=== PATIENT | male | born 1985 | race Caucasian/White ===

== ENCOUNTER 2022-06-16 12:03 | Inpatient (IN) ==
[2022-06-16] MEDS ORDERED: ONDANSETRON INJ 2 MG/ML 2 ML VIAL IV STA (12:17)
[2022-06-16] MEDS ORDERED: LORazepam 2 MG/1 ML VIAL IV STA ×2 (12:17→14:55)
[2022-06-16] MEDS ORDERED: MULTI-VITAMIN INFUSION 10 ML, THIAMINE HCL 100 MG, FOLIC ACID 1 MG in SODIUM CHLORIDE 0... IV ONE (12:17)
--- NOTE | 2022-06-16 12:23 | Emergency Department Note ---
Impression & Plan Seizure, Alcohol withdrawal, Alcohol abuse, Elevated liver enzymes, Thrombocytopenia, Acute head trauma, Fracture of nasal bone ED Provider Note NAME: SHERRY HYATT AGE: 37 SEX: M : 1985 ARRIVES VIA: Ambulance INFORMANT: [Patient][nursing] ED PROVIDER(S): [Jhon Medeiros MD] CHIEF COMPLAINT: Seizure HISTORY OF PRESENT ILLNESS: The patient is a 37-year-old male with a history of alcohol abuse. He has had seizures from alcohol withdrawal. The patient is visiting this area and was found rigid with seizure activity in the basement of his friend's home. Patient was postictal as per EMS. Patient complains of soreness to his tongue, he thinks he bit his tongue. He has a contusion and an abrasion to the mid forehead as well as an abrasion to the left side of his nose. His tetanus is current. The patient has some mild discomfort across the head and face. He denies any cough or congestion or recent illness. No recent fever. He cannot recall v omiting. The patient typically drinks vodka, anywhere from 6-10 drinks a day. His last alcohol consumption was about 24 hours ago. REVIEW OF SYSTEMS: See HPI for pertinent positives and negatives. A total of ten systems were reviewed and were otherwise negative. PMHx/PSHx: See Below SOCIAL HISTORY: See Below. PHYSICAL EXAM: GENERAL: Patient is in mild distress. HEENT: There is a hematoma to the mid forehead with an abrasion to the center of the hematoma, no laceration requiring repair. No bony step-off. Patient has a contusion at the base of his nasal bridge but there is no real discomfort to palpate the nose. No bony facial step-off noted. He has a normal bite. There is an abrasion to the left side of the nose, no laceration requiring repair. There are some subtle lacerations to his tongue consistent with a tongue bite. NECK: No stridor, no adenopathy, stiff collar in place. LUNGS: Clear to auscultation bilaterally, no wheeze, no rhonchi, breath sounds equal. HEART: Mildly tachycardic, regular rhythm, no murmurs. ABDOMEN: Soft, nontender, bowel sounds positive, no peritonitis. EXTREMITIES: No cyanosis or edema, full range of motion of all the joints with out pain or difficulty, no signs for acute trauma. NEUROLOGIC: Oriented x 3, no acute motor or sensory deficits, no focal weakness. He does have some generalized fine shaking of his extremities. SKIN: No rash, no jaundice, no diaphoresis. DIFFERENTIAL DIAGNOSIS: Infection, dehydration, seizure, alcohol withdrawal, alcohol abuse, intracranial bleeding, facial fracture, C-spine fracture, metabolic abnormality, hypo/hyperglycemia, electrolyte disturbance, anemia, hypoxia, cardiac sources, intracerebral event, toxicologic issues, as well as other pathologies. EMERGENCY DEPARTMENT COURSE/PROCEDURES: ECG: Indication was seizure. The ECG shows a sinus tachycardia with a rate of 102. There is no ST elevation, no PVCs. The QTc is 450. Continuous Cardiac Monitoring: An order was placed for continuous cardiac mo nitoring. The monitor shows a rate of 108 with sinus tachycardia. Critical Care Note: I have personally spent 51 minutes of critical care time in the direct management of this patient. This includes bedside care, interpretation of diagnostic studies, and testing, discussion with consultants, patient, and family members, and other required patient management activities. This 51 minutes is in excess of all separately billable procedures. MEDICAL DECISION MAKING: There is a lower white count, hemoglobin and platelet count, all likely c onsistent with his alcohol abuse. Potassium was low at 3.1. CO2 was low consistent with his alcoholism. No renal failure. Liver enzymes were elevated consistent with alcohol abuse. Total CK was not elevated making rhabdomyolysis less likely. Patient appeared to be in a euthyroid state. Prolactin level was elevated consistent with seizure-like activity. ECG showed a sinus tachycardia, no acute ischemia. Cardiac enzyme testing x1 was not consistent with acute cardiac injury. Urinalysis was discolored consistent with his elevated bilirubin level, no obvious infection by UA. Aspirin and Tylenol levels were undetectable. Urine tox is currently pending. Alcohol level was 27, mildly el evated. COVID test was negative. Chest film did not show pneumonia or CHF. Brain CT showed no acute bleed or mass-effect. A chronic finding was noted in the brain, the patient is aware of this abnormality. There was no C-spine fracture by CT imaging. Facial CT did show a nasal bone fracture. The patient received IV saline, 500 cc. He was given IV saline with multivitamins, thiamine and folate. He received IV Zofran, IV Ativan and oral Librium. Patient presents with what sounds like an alcohol withdrawal seizure. He has suffered a nasal fracture and some facial abrasions/contusions. He is in need of a hospital stay. He currently is resting comfortably without complaints and is asking for something to eat/drink. I did speak with the patient at length, I talked to the casework manager. The on- call hospitalist was consulted. Past Med/Surg History Medical History Abnormal brain CT Alcohol abuse Elevated liver enzymes Seizure Social History Smoking Status: Never smoker Preferred Language: Iraqi Feels Safe at Home: Yes Allergies Allergies Allergy/AdvReac Type Severity Reaction Status Date / Time [id number] Allergy Unknown Uncoded 11/21/02 14:26 N Allergy Unknown Uncoded 11/21/02 14:26 Results & Data (ED) Vital Signs Vital Signs - 24 hr 06/16/22 12:12 06/16/22 12:48 06/16/22 13:28 Temperature 36.8 C Temperature Source Oral Pulse Rate 108 H Pulse Rate [Apical] 96 H 93 H Respiratory Rate 22 20 18 Respiratory Effort / Characteristics Non-Labored Spontaneous Respiratory Depth Normal Normal Blood Pressure 128/68 Blood Pressure [Right Arm] 135/93 124/74 Blood Pressure Mean 88 Blood Pressure Mean [Right Arm] 107 90 Blood Pressure Position [Right Arm] Lying Pulse Oximetry 98 98 97 Oxygen Delivery Method Room Air Room Air Room Air Sepsis Recent Fever Within 48 Hours No Sepsis New/Unexplained Change in Mental Status No Sepsis Action Taken by Nursing No Action Required Home Medications Current Medication List: was personally reviewed by me Laboratory Data Attestation: I reviewed the patient's lab results. Result diagrams: 06/16/22 12:25 06/16/22 12:25 Lab Results 06/16/22 06/16/22 06/16/22 Range/Units 12:25 12:25 12:25 WBC 2.57 L (4.8-10.8) K/ul RBC 3.90 L (4.63-6.08) M/uL Hgb 11.7 L (14.0-18.0) g/dl Hct 35.6 L (40.1-51.0) % MCV 91.3 (80.0-100.0) fL MCH 30.0 (25.0-34.0) pg MCHC 32.9 (32.0-36.0) g/dL RDW Std Deviation 65.7 H (36.4-46.3) fL RDW Coeff of Sagrario 19.9 H (11.5-14.5) % Plt Count 37 L (130-400) K/uL Immature Gran % (Auto) 0.8 % Neut % (Auto) 68.1 % Lymph % (Auto) 18.3 % Josephine % (Auto) 10.1 % Eos % (Auto) 0.4 % Baso % (Auto) 2.3 % Neut # (Auto) 1.75 (1.4-6.5) K/uL Lymph # (Auto) 0.47 L (1.2-3.4) K/uL Josephine # (Auto) 0.26 (0.24-0.82) K/uL Eos # (Auto) 0.01 (0-0.50) K/uL Baso # (Auto) 0.06 (0-0.2) K/uL Immature Gran # (Auto) 0.02 (0.00-0.02) K/uL Platelet Estimate Signific. Decreased L (Normal) Sodium 137 (136-145) mmol/L Potassium 3.1 L (3.5-5.1) mmol/L Chloride 94 L (98-107) mmol/L Carbon Dioxide 17 L (21-32) mmol/L Anion Gap 26 H (3-11) BUN 9 (6-23) mg/dl Creatinine 0.71 (0.6-1.4) mg/dl Est Cr Clr Drug Dosing 185.7 ml/min Est GFR ( Amer) 137.0 ml/min Est GFR (Non-Af Amer) 118.2 ml/min BUN/Creatinine Ratio 12.7 (10-20) Glucose 116 H (70-99(Fasting)) mg/dl Calcium 9.7 (8.5-10.1) mg/dl Magnesium 1.9 (1.7-2.4) mg/dl Total Bilirubin 2.1 H (0.2-1.0) mg/dl AST 258 H (13-39) U/L ALT 108 H (7-52) U/L Alkaline Phosphatase 126 H (34-104) U/L Total Creatine Kinase 121 (30-223) U/L Troponin I High Sens 7.2 (0-20) pg/ml Total Protein 7.9 (6.0-8.3) gm/dl Albumin 4.7 (3.4-5.0) gm/dl Globulin 3.2 (2.5-4.0) gm/dl Albumin/Globulin Ratio 1.5 (0.9-2) TSH 2.687 (0.300-4.500) uIu/ml Prolactin ng/ml Urine Color Urine Appearance (Clear) Urine pH (4.5-7.5) Ur Specific Campbell (1.000-1.030) Urine Protein (Negative) Urine Glucose (UA) (Negative) Urine Ketones (Negative) Urine Blood (Negative) Urine Nitrite (Negative) Urine Bilirubin (Negative) Urine Urobilinogen (Negative) Ur Leukocyte Esterase (Negative) Urine WBC (Auto) (0-5) /hpf Urine RBC (Auto) (0-4) /hpf U Hyaline Cast (Auto) (0-5) /lpf U Epithel Cells (Auto) (0-5) /lpf Urine Bacteria (Auto) (Negative) Salicylates (3.0-30) mg/dl Acetaminophen (10-30) ug/ml Ethyl Alcohol mg/dL (<10.0) mg/dl SARS-CoV-2, RNA, NAAT (NEGATIVE) 06/16/22 06/16/22 06/16/22 Range/Units 12:25 12:25 12:25 WBC (4.8-10.8) K/ul RBC (4.63-6.08) M/uL Hgb (14.0-18.0) g/dl Hct (40.1-51.0) % MCV (80.0-100.0) fL MCH (25.0-34.0) pg MCHC (32.0-36.0) g/dL RDW Std Deviation (36.4-46.3) fL RDW Coeff of Sagrario (11.5-14.5) % Plt Count (130-400) K/uL Immature Gran % (Auto) % Neut % (Auto) % Lymph % (Auto) % Josephine % (Auto) % Eos % (Auto) % Baso % (Auto) % Neut # (Auto) (1.4-6.5) K/uL Lymph # (Auto) (1.2-3.4) K/uL Josephine # (Auto) (0.24-0.82) K/uL Eos # (Auto) (0-0.50) K/uL Baso # (Auto) (0-0.2) K/uL Immature Gran # (Auto) (0.00-0.02) K/uL Platelet Estimate (Normal) Sodium (136-145) mmol/L Potassium (3.5-5.1) mmol/L Chloride (98-107) mmol/L Carbon Dioxide (21-32) mmol/L Anion Gap (3-11) BUN (6-23) mg/dl Creatinine (0.6-1.4) mg/dl Est Cr Clr Drug Dosing ml/min Est GFR ( Amer) ml/min Est GFR (Non-Af Amer) ml/min BUN/Creatinine Ratio (10-20) Glucose (70-99(Fasting)) mg/dl Calcium (8.5-10.1) mg/dl Magnesium (1.7-2.4) mg/dl Total Bilirubin (0.2-1.0) mg/dl AST (13-39) U/L ALT (7-52) U/L Alkaline Phosphatase (34-104) U/L Total Creatine Kinase (30-223) U/L Troponin I High Sens (0-20) pg/ml Total Protein (6.0-8.3) gm/dl Albumin (3.4-5.0) gm/dl Globulin (2.5-4.0) gm/dl Albumin/Globulin Ratio (0.9-2) TSH (0.300-4.500) uIu/ml Prolactin 15.96 ng/ml Urine Color Urine Appearance (Clear) Urine pH (4.5-7.5) Ur Specific Campbell (1.000-1.030) Urine Protein (Negative) Urine Glucose (UA) (Negative) Urine Ketones (Negative) Urine Blood (Negative) Urine Nitrite (Negative) Urine Bilirubin (Negative) Urine Urobilinogen (Negative) Ur Leukocyte Esterase (Negative) Urine WBC (Auto) (0-5) /hpf Urine RBC (Auto) (0-4) /hpf U Hyaline Cast (Auto) (0-5) /lpf U Epithel Cells (Auto) (0-5) /lpf Urine Bacteria (Auto) (Negative) Salicylates < 3.0 L (3.0-30) mg/dl Acetaminophen 3 L (10-30) ug/ml Ethyl Alcohol mg/dL 27.5 H (<10.0) mg/dl SARS-CoV-2, RNA, NAAT (NEGATIVE) 06/16/22 06/16/22 Range/Units 12:39 13:00 WBC (4.8-10.8) K/ul RBC (4.63-6.08) M/uL Hgb (14.0-18.0) g/dl Hct (40.1-51.0) % MCV (80.0-100.0) fL MCH (25.0-34.0) pg MCHC (32.0-36.0) g/dL RDW Std Deviation (36.4-46.3) fL RDW Coeff of Sagrario (11.5-14.5) % Plt Count (130-400) K/uL Immature Gran % (Auto) % Neut % (Auto) % Lymph % (Auto) % Josephine % (Auto) % Eos % (Auto) % Baso % (Auto) % Neut # (Auto) (1.4-6.5) K/uL Lymph # (Auto) (1.2-3.4) K/uL Josephine # (Auto) (0.24-0.82) K/uL Eos # (Auto) (0-0.50) K/uL Baso # (Auto) (0-0.2) K/uL Immature Gran # (Auto) (0.00-0.02) K/uL Platelet Estimate (Normal) Sodium (136-145) mmol/L Potassium (3.5-5.1) mmol/L Chloride (98-107) mmol/L Carbon Dioxide (21-32) mmol/L Anion Gap (3-11) BUN (6-23) mg/dl Creatinine (0.6-1.4) mg/dl Est Cr Clr Drug Dosing ml/min Est GFR ( Amer) ml/min Est GFR (Non-Af Amer) ml/min BUN/Creatinine Ratio (10-20) Glucose (70-99(Fasting)) mg/dl Calcium (8.5-10.1) mg/dl Magnesium (1.7-2.4) mg/dl Total Bilirubin (0.2-1.0) mg/dl AST (13-39) U/L ALT (7-52) U/L Alkaline Phosphatase (34-104) U/L Total Creatine Kinase (30-223) U/L Troponin I High Sens (0-20) pg/ml Total Protein (6.0-8.3) gm/dl Albumin (3.4-5.0) gm/dl Globulin (2.5-4.0) gm/dl Albumin/Globulin Ratio (0.9-2) TSH (0.300-4.500) uIu/ml Prolactin ng/ml Urine Color [place] Urine Appearance Cloudy A (Clear) Urine pH 5.5 (4.5-7.5) Ur Specific Campbell 1.025 (1.000-1.030) Urine Protein 2+ H (Negative) Urine Glucose (UA) Negative (Negative) Urine Ketones 3+ H (Negative) Urine Blood Negative (Negative) Urine Nitrite Positive A (Negative) Urine Bilirubin 1+ H (Negative) Urine Urobilinogen Negative (Negative) Ur Leukocyte Esterase Negative (Negative) Urine WBC (Auto) 1-5 (0-5) /hpf Urine RBC (Auto) 0-4 (0-4) /hpf U Hyaline Cast (Auto) 10-30 H (0-5) /lpf U Epithel Cells (Auto) 10-20 H (0-5) /lpf Urine Bacteria (Auto) Negative (Negative) Salicylates (3.0-30) mg/dl Acetaminophen (10-30) ug/ml Ethyl Alcohol mg/dL (<10.0) mg/dl SARS-CoV-2, RNA, NAAT NEGATIVE (NEGATIVE) Administered Medications Discontinued Medications Chlordiazepoxide HCl (Chlordiazepoxide Hcl 25 Mg Cap) 50 mg PO NOW ONE Stop: 06/16/22 14:12 Last Admin: 06/16/22 14:18 Dose: 50 mg Documented By: MIUGEL ÁNGEL Sodium Chloride (Nss) 500 mls @ 999 mls/hr IV .Q31M MANJIT Stop: 06/16/22 13:00 Last Infusion: 06/16/22 13:11 Dose: 0 mls/hr Documented By: MIGUEL ÁNGEL Admin: 06/16/22 12:39 Dose: 999 mls/hr Documented By: ROCHELLE Multivitamins 10 ml/ Thiamine HCl 100 mg/ Folic Acid 1 mg/Sodium Chloride 1,011.2 mls @ 1,011.2 mls/hr IV .Q1H ONE Stop: 06/16/22 13:16 Last Infusion: 06/16/22 13:50 Dose: 0 mls/hr Documented By: MIGUEL ÁNGEL Admin: 06/16/22 12:48 Dose: 1,011.2 mls/hr Documented By: ROCHELLE Lorazepam (Lorazepam 2 Mg/1 Ml Vial) 2 mg IV NOW STA; Protocol Stop: 06/16/22 12:18 Last Admin: 06/16/22 12:37 Dose: 2 mg Documented By: ROCHELLE Ondansetron HCl (Ondansetron Inj 2 Mg/Ml 2 Ml Vial) 4 mg IV NOW STA Stop: 06/16/22 12:18 Last Admin: 06/16/22 12:38 Dose: 4 mg Documented By: ROCHELLE Imaging Data Radiologist's Impression: Cervical Spine CT 06/16/22 12:17 CT SCAN OF THE CERVICAL SPINE CLINICAL HISTORY: Trauma. Fall. COMPARISON STUDY: No priors. TECHNIQUE: CT scan of the cervical spine is performed from the skull base to the upper thoracic spine. Images are reviewed in the axial, sagittal, and coronal planes. IV contrast was not administered for this examination. A dose lowering technique was utilized adhering to the principles of ALARA. CT DOSE: 1604.76 mGy.cm FINDINGS: Skeletal structures: The skeletal structures are well mineralized. There is no evidence of fracture or subluxation involving the cervical spine. Vertebral body height and alignment are maintained. There is straightening of the cervical lordosis. The odontoid process and lateral masses are intact. The atlantoaxial articulation is preserved. The spinous processes appear intact. There are minim al and age-indeterminate superior endplate compression deformities of T1 and T2. Intervertebral discs: The disc spaces are well maintained. Central canal: Grossly patent. Soft tissues: The prevertebral and paraspinous soft tissues are within normal limits. Calvarium: The visualized calvarium at the skull base appears intact. Brain parenchyma: Partially visualized brain parenchyma at the skull base is within normal limits. Sinuses and mastoids: The visualized paranasal sinuses are clear. The mastoid air cells are well pneumatized. Lung apices: Clear as visualized. IMPRESSION: 1. There is no evidence of fracture or subluxation involving the cervical spine. 2. There are minimal age indeterminant superior endplate compression deformities of T1 and T2. Correlate for point tenderness. ACT 112: Negative or not required by law. Electronically signed by: Jhon Abel M.D. 06/16/2022 1:39 PM Chest X-Ray 06/16/22 12:17 XR chest 1V portable CLINICAL HISTORY: weakness COMPARISON STUDY: No previous studies for comparison. FINDINGS: Lung volumes are normal. Lungs are clear. There is no pneumothorax or pleural effusion. Cardiac size is at the upper limits of normal. Mediastinal contours are normal. There is no evidence for pulmonary edema. IMPRESSION: No acute cardiopulmonary findings. ACT 112: Negative or not required by law. Electronically signed by: Osvaldo García M.D. 06/16/2022 12:[address] 06/16/22 12:17 CT facial bones wo con CLINICAL HISTORY: 37 years-old Male presenting with fall, pain. Acute head and facial trauma COMPARISON STUDY: CT head and cervical spine studies of same day TECHNIQUE: High-resolution CT scan of the facial bones is performed. Images are reviewed in the axial, sagittal, and coronal planes. IV contrast was not administered for this examination. A dose lowering technique was utilized adhering to the principles of ALARA. FINDINGS: The hyperdense focus within the left posterior fossa is better characterized on the head CT of same day. The bilateral globes and orbits appear unremarkable. Mastoid air cells and middle ear cavities are clear. Partially opacified right sphenoid sinus. There is mild mucosal thickening of the right greater than left maxillary sinuses with small area of polypoid mucosal thickening involving the right maxillary sinus. Acute appearing bilateral nasal bone fractures, nondisplaced on the right and mildly angulated on the left. Mild leftward bowing and spurring the nasal septum. No additional acute facial bone fracture identified. Mild degenerative changes of the imaged cervical spine. Small left forehead and left cheek contusions. Chronic appearing depressed right orbital floor fracture without extraocular entrapment. IMPRESSION: 1. Acute bilateral nasal bone fractures with mild angulation on the left. 2. Mild mucosal thickening of the paranasal sinuses. 3. Small left forehead and left cheek contusions. 4. Chronic appearing depressed right orbital floor fracture. No extraocular muscle entrapment. 5. Please refer to the head CT of same day for additional findings. ACT 112: Negative or not required by law. The above report was generated using voice recognition software. It may contain grammatical, syntax or spelling errors. Electronically signed by: Mak Mcfarland M.D. 06/16/2022 2:[address] 06/16/22 12:17 CT OF THE HEAD WITHOUT CONTRAST CLINICAL HISTORY: fall, hit head COMPARISON STUDY: No previous studies for comparison. TECHNIQUE: Helical axial images of the head were obtained without IV contrast. Automated exposure control was utilized for the study. A dose lowering technique was utilized adhering to the principles of ALARA. FINDINGS: A forehead contusion is present. There is no acute calvarial fracture. Ventricular system is normal. Basal cisterns are patent. There are no extra axial collections. Note is made of a 1.2 cm oval-shaped hyperdensity within the left cerebellar hemisphere on axial image 58 of 256. This contains foci of increased attenuation suggestive of calcifications. There is no associated edema. No additional hyperdense foci are identified on this exam. Facial bone CT will be reported separately. Old right orbital floor defect is better depicted on that exam. IMPRESSION: 1. 1.2 cm hyperdense focus within the left cerebellar hemisphere which likely contains calcifications. No edema or mass effect. Although indeterminate, a cavernoma is favored. Hemorrhage is considered much less likely. This could be assessed with a follow-up head CT in 48 to 72 hours. Alternately, MRI of the brain could be obtained. 2. Forehead contusion. No calvarial fracture. ACT 112: Negative or not required by law. Electronically signed by: Osvaldo García M.D. 06/16/2022 1:47 PM Discharge Plan Visit Data Chief Complaint: Seizure Stated Complaint: SEIZURE, FALL BLEEDING FROM FOREHEAD & NOSE ED Provider: Jhon Medeiros Discharge Problem: Seizure, Alcohol withdrawal, Alcohol abuse, Elevated liver enzymes, Thrombocytopenia, Acute head trauma, Fracture of nasal bone Patient Disposition: Admitted As Inpatient Condition: Fair Forms Stand Alone Forms: [facility] Referrals Referrals: PCP,NO [Primary Care Provider] -
[2022-06-16] MEDS ORDERED: SODIUM CHLORIDE 0.9% 500 ML IV SCH (12:30)
--- NOTE | 2022-06-16 12:56 | XRay Report ---
XR chest 1V portable CLINICAL HISTORY: weakness COMPARISON STUDY: No previous studies for comparison. FINDINGS: Lung volumes are normal. Lungs are clear. There is no pneumothorax or pleural effusion. Car diac size is at the upper limits of normal. Mediastinal contours are normal. There is no evidence for pulmonary edema. IMPRESSION: No acute cardiopulmonary findings. ACT 112: Negative or not required by law. Electronically signed by: Osvaldo García M.D. 06/16/2022 12:55 PM
[2022-06-16 13:16] LABS: Acetaminophen 3 ug/ml (10-30); Salicylate < 3.0 mg/dl (3.0-30)
[2022-06-16 13:19] LABS: Troponin I High Sensitivity 7.2 pg/ml (0-20)
[2022-06-16 13:24] LABS: Albumin Globulin Ratio 1.5 (0.9-2); Albumin Level 4.7 gm/dl (3.4-5.0); BUN Creatinine Ratio 12.7 (10-20); Bilirubin,Total 2.1 mg/dl (0.2-1.0); Calcium 9.7 mg/dl (8.5-10.1); Creatinine Clr Calc Pharmacy 185.7 ml/min; Est GFR (Non-African American) 118.2 ml/min; Globulin 3.2 gm/dl (2.5-4.0); Magnesium 1.9 mg/dl (1.7-2.4); Potassium 3.1 mmol/L (3.5-5.1); Total Protein 7.9 gm/dl (6.0-8.3)
[2022-06-16 13:32] LABS: Appearance Urine Cloudy (Clear); Bacteria Urine Automated Negative (Negative); Blood Urine Negative (Negative); Color Urine Orange; Glucose Urine UA Negative (Negative); Ketones Urine 3+ (Negative); Leukocyte Esterase Urine Negative (Negative); Nitrite Urine Positive (Negative); Protein Urine 2+ (Negative); RBC Urine Automated 0-4 /hpf (0-4); Specific Gravity Urine 1.025 (1.000-1.030); Urobilinogen Urine Negative (Negative); pH Urine 5.5 (4.5-7.5)
--- NOTE | 2022-06-16 13:40 | CT Scan Report ---
CT SCAN OF THE CERVICAL SPINE CLINICAL HISTORY: Trauma. Fall. COMPARISON STUDY: No priors. TECHNIQUE: CT scan of the cervical spine is performed from the skull base to the upper thoracic spine . Images are reviewed in the axial, sagittal, and coronal planes. IV contrast was not administered fo r this examination. A dose lowering technique was utilized adhering to the principles of ALARA. CT DOSE: 1604.76 mGy.cm FINDINGS: Skeletal structures: The skeletal structures are well mineralized. There is no evidence of fracture o r subluxation involving the cervical spine. Vertebral body height and alignment are maintained. There is straightening of the cervical lordosis. The odontoid process and lateral masses are intact. The a tlantoaxial articulation is preserved. The spinous processes appear intact. There are minimal and age -indeterminate superior endplate compression deformities of T1 and T2. Intervertebral discs: The disc spaces are well maintained. Central canal: Grossly patent. Soft tissues: The prevertebral and paraspinous soft tissues are within normal limits. Calvarium: The visualized calvarium at the skull base appears intact. Brain parenchyma: Partially visualized brain parenchyma at the skull base is within normal limits. Sinuses and mastoids: The visualized paranasal sinuses are clear. The mastoid air cells are well pneu matized. Lung apices: Clear as visualized. IMPRESSION: 1. There is no evidence of fracture or subluxation involving the cervical spine. 2. There are minimal age indeterminant superior endplate compression deformities of T1 and T2. Correl ate for point tenderness. ACT 112: Negative or not required by law. Electronically signed by: Jhon Abel M.D. 06/16/2022 1:39 PM
[2022-06-16 13:42] LABS: Hematocrit (blood only) 35.6 % (40.1-51.0); Hemoglobin 11.7 g/dl (14.0-18.0); Mean Corpuscular Hgb Conc 32.9 g/dL (32.0-36.0); Mean Corpuscular Volume 91.3 fL (80.0-100.0); Platelet Count 37 K/uL (130-400); RDW Coefficient of Variation 19.9 % (11.5-14.5); RDW Standard Deviation 65.7 fL (36.4-46.3); White Blood Count 2.57 K/ul (4.8-10.8)
[2022-06-16 13:43] LABS: Basophils # (auto) 0.06 K/uL (0-0.2); Basophils % (auto) 2.3 %; Eosinophils # (auto) 0.01 K/uL (0-0.50); Eosinophils % (auto) 0.4 %; Immature Granulocytes # (auto) 0.02 K/uL (0.00-0.02); Immature Granulocytes % (auto) 0.8 %; Lymphocytes # (auto) 0.47 K/uL (1.2-3.4); Lymphocytes % (auto) 18.3 %; Monocytes # (auto) 0.26 K/uL (0.24-0.82); Monocytes % (auto) 10.1 %; Neutrophils # (auto) 1.75 K/uL (1.4-6.5); Neutrophils % (auto) 68.1 %; Platelet Estimate Signific. Decreased (Normal)
[2022-06-16 13:48] LABS: Bilirubin Urine 1+ (Negative)
--- NOTE | 2022-06-16 13:49 | CT Scan Report ---
CT OF THE HEAD WITHOUT CONTRAST CLINICAL HISTORY: fall, hit head COMPARISON STUDY: No previous studies for comparison. TECHNIQUE: Helical axial images of the head were obtained without IV contrast. Automated exposure con trol was utilized for the study. A dose lowering technique was utilized adhering to the principles o f ALARA. FINDINGS: A forehead contusion is present. There is no acute calvarial fracture. Ventricular system i s normal. Basal cisterns are patent. There are no extra axial collections. Note is made of a 1.2 cm o jenise-shaped hyperdensity within the left cerebellar hemisphere on axial image 58 of 256. This contains foci of increased attenuation suggestive of calcifications. There is no associated edema. No additio nal hyperdense foci are identified on this exam. Facial bone CT will be reported separately. Old righ t orbital floor defect is better depicted on that exam. IMPRESSION: 1. 1.2 cm hyperdense focus within the left cerebellar hemisphere which likely contains calcifications . No edema or mass effect. Although indeterminate, a cavernoma is favored. Hemorrhage is considered m uch less likely. This could be assessed with a follow-up head CT in 48 to 72 hours. Alternately, MRI of the brain could be obtained. 2. Forehead contusion. No calvarial fracture. ACT 112: Negative or not required by law. Electronically signed by: Osvaldo García M.D. 06/16/2022 1:47 PM
[2022-06-16] MEDS ORDERED: chlordiazePOXIDE HCl 25 MG CAP PO ONE (14:11)
--- NOTE | 2022-06-16 14:14 | CT Scan Report ---
CT facial bones wo con CLINICAL HISTORY: 37 years-old Male presenting with fall, pain. Acute head and facial trauma COMPARISON STUDY: CT head and cervical spine studies of same day TECHNIQUE: High-resolution CT scan of the facial bones is performed. Images are reviewed in the axia l, sagittal, and coronal planes. IV contrast was not administered for this examination. A dose lower ing technique was utilized adhering to the principles of ALARA. FINDINGS: The hyperdense focus within the left posterior fossa is better characterized on the head CT of same d ay. The bilateral globes and orbits appear unremarkable. Mastoid air cells and middle ear cavities ar e clear. Partially opacified right sphenoid sinus. There is mild mucosal thickening of the right grea ter than left maxillary sinuses with small area of polypoid mucosal thickening involving the right ma xillary sinus. Acute appearing bilateral nasal bone fractures, nondisplaced on the right and mildly a ngulated on the left. Mild leftward bowing and spurring the nasal septum. No additional acute facial bone fracture identified. Mild degenerative changes of the imaged cervical spine. Small left forehead and left cheek contusions. Chronic appearing depressed right orbital floor fracture without extraocu lar entrapment. IMPRESSION: 1. Acute bilateral nasal bone fractures with mild angulation on the left. 2. Mild mucosal thickening of the paranasal sinuses. 3. Small left forehead and left cheek contusions. 4. Chronic appearing depressed right orbital floor fracture. No extraocular muscle entrapment. 5. Please refer to the head CT of same day for additional findings. ACT 112: Negative or not required by law. The above report was generated using voice recognition software. It may contain grammatical, syntax o r spelling errors. Electronically signed by: Mak Mcfarland M.D. 06/16/2022 2:12 PM
[2022-06-16] MEDS ORDERED: POTASSIUM CHLORIDE CRTAB 20 MEQ TABCR PO STA (14:55)
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
[2022-06-16] MEDS ORDERED: THIAMINE HCL 500 MG in SODIUM CHLORIDE 0.9% 50 ML IV STA (15:02)
[2022-06-16 15:06] LABS: Amphetamines+Metham, Urine Neg (Neg); Barbiturates, Urine Neg (Neg); Benzodiazepine, Urine Neg (Neg); Cocaine, Urine Neg (Neg); MDMA (Ecstacy), Urine Neg (Neg); Methadone, Urine Neg (Neg); Opiate, Urine Neg (Neg); Phencyclidine, Urine Neg (Neg)
--- NOTE | 2022-06-16 16:47 | Electrocardiogram Report ---
Test Reason : Blood Pressure : / mmHG Vent. Rate : 102 BPM Atrial Rate : 102 BPM P-R Int : 184 ms QRS Dur : 094 ms QT Int : 346 ms P-R-T Axes : 057 020 063 degrees QTc Int : 450 ms Sinus tachycardia Otherwise normal ECG No previous ECGs available Confirmed by Haroon Ordoñez ([id number]) on 06/16/2022 4:47:18 PM Referred By: REFERRED SELF Confirmed By:Ferny Ordoñez
[2022-06-16] MEDS ORDERED: ONDANSETRON INJ 2 MG/ML 2 ML VIAL IV PRN (17:01)
[2022-06-16] MEDS ORDERED: LORazepam 2 MG/1 ML VIAL IV PRN (17:01)
[2022-06-16] MEDS ORDERED: LORazepam 2 MG in SYRINGE 1 ML IV PRN (17:01)
[2022-06-16] MEDS ORDERED: LORazepam 3 MG in SYRINGE 1.5 ML IV PRN (17:01)
[2022-06-16] MEDS ORDERED: Ativan PO Alcohol Withdrawal--Active Protocol PO PRN (17:01)
[2022-06-16] MEDS ORDERED: chlordiazePOXIDE ALCOHOL WITHDRAWL 50MG PO STA (17:01)
[2022-06-16] MEDS ORDERED: LORazepam 1 MG in SYRINGE 0.5 ML IV PRN (17:01)
[2022-06-16] MEDS ORDERED: Ativan IV Alcohol Withdrawal--Active Protocol IV PRN (17:01)
[2022-06-16] MEDS: LACTATED RINGER'S 1,000 ML IV SCH (18:04)
[2022-06-16] MEDS: FOLIC ACID 1 MG TAB PO SCH ×2 (18:05→18:16)
[2022-06-16] MEDS: CYANOCOBALAMIN (B-12) 100 MCG TABLET PO SCH (18:05)
[2022-06-16] MEDS: THIAMINE HCL 500 MG in SODIUM CHLORIDE 0.9% 50 ML IV SCH ×2 (18:06→18:16)
[2022-06-16] MEDS ORDERED: BACITRACIN OINT 15 GM TUBE EXT PRN (20:37)
[2022-06-16] MEDS: chlordiazePOXIDE HCl 25 MG CAP PO SCH (20:49)
[2022-06-16] MEDS: ACETAMINOPHEN 325 MG TAB PO PRN (21:37)
[2022-06-17] MEDS: chlordiazePOXIDE HCl 25 MG CAP PO SCH ×2 (02:05→08:52)
[2022-06-17] MEDS: THIAMINE HCL 500 MG in SODIUM CHLORIDE 0.9% 50 ML IV SCH ×2 (02:05→08:35)
[2022-06-17] MEDS: LACTATED RINGER'S 1,000 ML IV SCH (03:56)
[2022-06-17 06:39] LABS: Hematocrit (blood only) 31.9 % (40.1-51.0); Hemoglobin 10.4 g/dl (14.0-18.0); Mean Corpuscular Hemoglobin 29.7 pg (25.0-34.0); Mean Corpuscular Hgb Conc 32.6 g/dL (32.0-36.0); Mean Corpuscular Volume 91.1 fL (80.0-100.0); Platelet Count 34 K/uL (130-400); RDW Coefficient of Variation 19.6 % (11.5-14.5); RDW Standard Deviation 64.3 fL (36.4-46.3); White Blood Count 2.11 K/ul (4.8-10.8)
[2022-06-17 06:43] LABS: Alanine Aminotransferase 90 U/L (7-52); Albumin Globulin Ratio 1.6 (0.9-2); Albumin Level 3.9 gm/dl (3.4-5.0); Alkaline Phosphatase 103 U/L (34-104); Anion Gap 9 (3-11); Aspartate Aminotransferase 218 U/L (13-39); BUN Creatinine Ratio 12.5 (10-20); Bilirubin Direct 0.7 mg/dl (0-0.2); Bilirubin,Total 2.2 mg/dl (0.2-1.0); Blood Urea Nitrogen 7 mg/dl (6-23); Calcium 8.9 mg/dl (8.5-10.1); Carbon Dioxide 28 mmol/L (21-32); Chloride 98 mmol/L (98-107); Est GFR (African American) > 150.0 ml/min; Est GFR (Non-African American) 130.3 ml/min; Globulin 2.5 gm/dl (2.5-4.0); Glucose 70 mg/dl (70-99(Fasting)); Potassium 3.2 mmol/L (3.5-5.1); Sodium 135 mmol/L (136-145); Total Protein 6.4 gm/dl (6.0-8.3)
[2022-06-17 07:25] LABS: Basophils # (auto) 0.04 K/uL (0-0.2); Basophils % (auto) 1.9 %; Eosinophils # (auto) 0.01 K/uL (0-0.50); Eosinophils % (auto) 0.5 %; Immature Granulocytes # (auto) 0.02 K/uL (0.00-0.02); Immature Granulocytes % (auto) 0.9 %; Lymphocytes % (auto) 23.7 %; Monocytes # (auto) 0.33 K/uL (0.24-0.82); Monocytes % (auto) 15.6 %; Neutrophils # (auto) 1.21 K/uL (1.4-6.5); Neutrophils % (auto) 57.4 %
[2022-06-17] MEDS: FOLIC ACID 1 MG TAB PO SCH (08:35)
[2022-06-17] MEDS: ACETAMINOPHEN 325 MG TAB PO PRN (08:51)
[2022-06-17] MEDS: CYANOCOBALAMIN (B-12) 100 MCG TABLET PO SCH (10:03)
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
== END 2022-06-17 12:26 | disposition home or self-care (01) | DRG 897 ==
LOC: ED 12:03 → 2S 14:54 → SUATTDRO 14:54 → 2S 15:44